=== PATIENT | female | born 1950 | race Caucasian/White ===

== ENCOUNTER 2021-07-02 20:38 | Inpatient (IN) ==
[2021-07-02] MEDS ORDERED: FUROSEMIDE 40 MG/4 ML VIAL IV STA (21:49)
[2021-07-02] MEDS ORDERED: cefTRIAXone 1,000 MG in SODIUM CHLORIDE 0.9% 100 ML IV STA (21:49)
[2021-07-02] MEDS ORDERED: ONDANSETRON 4 MG/2 ML VIAL IV STA (21:49)
[2021-07-02 22:08] LABS: Basophils % 0.3 % (0.0-0.8); Eosinophils % 0.1 % (0.00-10.9); Hematocrit 33.9 VOL% (35.7-47.0); Hemoglobin 10.7 GM/DL (12.0-16.0); Immature Granulocytes % 1.4 %; Immature Granulocytes Absolute 0.17 #; Lymphocytes # 0.4 10*3/uL (1.4-4.0); Mean Corpuscular HGB Conc 31.6 GM/DL (32-36); Mean Corpuscular Volume 76.5 FL (87-102); Monocytes % 9.5 % (1.7-12.7); Neutrophils % 85.7 % (38.7-73.9); Platelet Count 158 T/CUMM (130-400); Red Blood Count 4.43 MC/CUMM (3.8-5.5); Red Cell Distribution Width 16.4 % (9.3-17.3); White Blood Count 11.8 T/CUMM (4-12)
[2021-07-02 22:20] LABS: Albumin 2.6 G/DL (3.4-5.0); Bilirubin,Total 0.9 MG/DL (0.20-1.00); Osmolality,Calculated 272.5 MOS/KG (273-304); Potassium 3.2 MMOL/L (3.5-5.1); Total Protein 6.3 G/DL (6.4-8.2)
[2021-07-02 22:34] LABS: Band Neutrophils 2 % (0-10); Hypochromia Slight; Lymphocytes 5 % (20-55); Microcytosis Slight; Platelet Estimate Normal; Segmented Neutrophils 91 % (50-85); Total Cells Counted 100
[2021-07-02] MEDS ORDERED: MAGNESIUM SULF RIDER 2 GM/50 ML PREMIX IV STA (22:56)
[2021-07-02] MEDS ORDERED: POTASSIUM CHLORIDE 20 MEQ TABLET PO STA (22:57)
[2021-07-02 23:23] LABS: Bacteria,Urine Occasional /HPF (Few); Bilirubin,Urine Negative (Negative); Blood, Urine Large mg/dL (Negative); Glucose,Urine (UA) Negative (Negative); Ketones,Urine Negative (Negative); Mucus,Urine Occasional /LPF (Occasional); Nitrite,Urine Negative (Negative); Protein,Urine 100 MG/DL; RBC,Urine 6 /HPF (0-4); Squamous Epithelial Cell,Urine Occasional /HPF (0-10); Urine Appearance CLOUDY (Clear); Urine Color Amber (Yellow); Urine Specific Gravity 1.013 (1.001-1.035); Urine Urobilinogen < 2.0 EU/DL (<2.0)
[2021-07-02] MEDS ORDERED: ENOXAPARIN 100 MG/ML SYRINGE SUBCUT STA (23:49)
[2021-07-02] MEDS ORDERED: ENOXAPARIN 120 MG/0.8 ML SYRINGE SUBCUT STA (23:50)
[2021-07-03] MEDS ORDERED: MORPHINE 2 MG/1 ML SYRINGE IV PRN (00:11)
[2021-07-03] MEDS ORDERED: ZALEPLON 5 MG CAPSULE PO PRN (00:11)
[2021-07-03] MEDS ORDERED: diphenhydrAMINE CAP 25 MG CAPSULE PO PRN (00:11)
[2021-07-03] MEDS ORDERED: NICOTINE 21 MG/24 HR PATCH TRANSDERM PRN (00:11)
[2021-07-03] MEDS ORDERED: hydrALAZINE 20 MG/1 ML VIAL IV PRN (00:11)
[2021-07-03] MEDS ORDERED: ONDANSETRON 4 MG/2 ML VIAL IV PRN (00:11)
[2021-07-03] MEDS ORDERED: DOCUSATE SODIUM 100 MG CAPSULE PO PRN (00:11)
[2021-07-03] MEDS ORDERED: GLUCAGON 1 MG VIAL IM PRN (00:11)
[2021-07-03] MEDS ORDERED: DEXTROSE 10% 250 ML BAG IV PRN (00:11)
[2021-07-03] MEDS ORDERED: ACETAMINOPHEN 325 MG TABLET PO PRN (00:11)
[2021-07-03] MEDS ORDERED: guaiFENesin/DM ER 600-30 MG TABLET PO PRN (00:11)
[2021-07-03] MEDS ORDERED: SODIUM CHLORIDE 0.9% 1,000 ML IV STA (00:43)
[2021-07-03] MEDS: ALBUTEROL/IPRATROPIUM 3 ML NEB RESP TX SCH ×4 (00:56→19:56)
[2021-07-03 06:05] LABS: Basophils % 0.2 % (0.0-0.8); Eosinophils % 0.1 % (0.00-10.9); Hematocrit 31.6 VOL% (35.7-47.0); Immature Granulocytes % 1.4 %; Immature Granulocytes Absolute 0.15 #; Lymphocytes # 0.6 10*3/uL (1.4-4.0); Lymphocytes % 5.8 % (21.3-54.2); Mean Corpuscular HGB Conc 31.6 GM/DL (32-36); Mean Corpuscular Volume 77.3 FL (87-102); Mean Platelet Volume 9.4 FL (9.6-12.0); Monocytes % 12.3 % (1.7-12.7); Neutrophils % 80.2 % (38.7-73.9); Platelet Count 156 T/CUMM (130-400); Red Blood Count 4.09 MC/CUMM (3.8-5.5); Red Cell Distribution Width 16.4 % (9.3-17.3); White Blood Count 10.5 T/CUMM (4-12)
[2021-07-03] MEDS ORDERED: MAGNESIUM SULF RIDER 2 GM/50 ML PREMIX IV PRN (06:31)
[2021-07-03] MEDS ORDERED: MAGNESIUM SULF RIDER 4 GM/100 ML PREMIX IV PRN (06:31)
[2021-07-03 06:38] LABS: Albumin 2.2 G/DL (3.4-5.0); Band Neutrophils 2 % (0-10); Bilirubin,Total 0.8 MG/DL (0.20-1.00); Calcium 9.3 MG/DL (8.5-10.1); Hypochromia Slight; Lymphocytes 5 % (20-55); Osmolality,Calculated 275.2 MOS/KG (273-304); Platelet Estimate Normal; Potassium 3.4 MMOL/L (3.5-5.1); Segmented Neutrophils 83 % (50-85); Total Cells Counted 100; Total Protein 6.4 G/DL (6.4-8.2)
[2021-07-03] MEDS ORDERED: ENOXAPARIN 120 MG/0.8 ML SYRINGE SUBCUT SCH (07:00)
[2021-07-03] MEDS ORDERED: cefTRIAXone 1,000 MG in SODIUM CHLORIDE 0.9% 100 ML IV SCH ×2 (07:00→23:00)
[2021-07-03] MEDS: PANTOPRAZOLE 40 MG TABLET PO SCH (10:47)
[2021-07-03] MEDS: ENOXAPARIN 120 MG/0.8 ML SYRINGE SUBCUT SCH (14:54)
[2021-07-03] MEDS ORDERED: SIMVASTATIN 20 MG TABLET PO SCH (21:00)
[2021-07-03] MEDS: POTASSIUM CHLORIDE 20 MEQ TABLET PO SCH (21:44)
[2021-07-04] MEDS: ENOXAPARIN 120 MG/0.8 ML SYRINGE SUBCUT SCH
[2021-07-04] MEDS: ALBUTEROL/IPRATROPIUM 3 ML NEB RESP TX SCH ×2 (02:45→08:41)
[2021-07-04 05:37] LABS: Basophils % 0.4 % (0.0-0.8); Eosinophils # 0.3 10*3/uL (0.0-0.87); Eosinophils % 2.7 % (0.00-10.9); Hematocrit 31.7 VOL% (35.7-47.0); Hemoglobin 9.9 GM/DL (12.0-16.0); Immature Granulocytes % 0.6 %; Immature Granulocytes Absolute 0.06 #; Lymphocytes % 10.3 % (21.3-54.2); Mean Corpuscular HGB Conc 31.2 GM/DL (32-36); Mean Corpuscular Volume 77.9 FL (87-102); Mean Platelet Volume 9.7 FL (9.6-12.0); Monocytes % 16.4 % (1.7-12.7); Neutrophils % 69.6 % (38.7-73.9); Platelet Count 162 T/CUMM (130-400); Red Blood Count 4.07 MC/CUMM (3.8-5.5); Red Cell Distribution Width 16.5 % (9.3-17.3); White Blood Count 9.7 T/CUMM (4-12)
[2021-07-04 05:49] LABS: Calcium 9.3 MG/DL (8.5-10.1); Osmolality,Calculated 277.2 MOS/KG (273-304); Potassium 3.1 MMOL/L (3.5-5.1)
[2021-07-04 06:21] LABS: Band Neutrophils 2 % (0-10); Eosinophils 3 % (0-10); Hypochromia 1+; Lymphocytes 7 % (20-55); Microcytosis 1+; Platelet Estimate Adequate; Segmented Neutrophils 74 % (50-85); Total Cells Counted 100
[2021-07-04] MEDS: POTASSIUM CHLORIDE 20 MEQ TABLET PO SCH (08:28)
[2021-07-04] MEDS: PANTOPRAZOLE 40 MG TABLET PO SCH (08:28)
[2021-07-04] MEDS ORDERED: INDOMETHACIN 25 MG CAPSULE PO SCH (09:00)
[2021-07-04] MEDS ORDERED: FUROSEMIDE 40 MG TABLET PO SCH (09:00)
[2021-07-04] MEDS ORDERED: allopurinoL 100 MG TABLET PO SCH (09:00)
[2021-07-04] MEDS ORDERED: MONTELUKAST 10 MG TABLET PO SCH (09:00)
[2021-07-04] MEDS ORDERED: VENLAFAXINE XR 75 MG CAPSULE PO SCH (09:00)
[2021-07-04 09:54] VITALS: BP 123/48
== END 2021-07-04 12:05 | disposition home health service (06) | DRG 689 ==
LOC: EDUNIT# → EDBD → N.ED 20:38 → N.EDINP 07-03 00:11 → N.TELEN 07-03 04:33
PROVIDERS: ADMIT Internal Medicine; ATTEND Internal Medicine